=== PATIENT | male | born 1985 | race Caucasian/White ===

== ENCOUNTER 2016-06-07 19:47 | Emergency (ER) | payer OTHER ==
[2016-06-07 20:10] VITALS: BP 108/65; PULSE 64; RESP 18; TEMP 98.5; O2SAT 98
[2016-06-07 20:11] VITALS: BMI 24.3
--- NOTE | 2016-06-07 20:42 | C.PDOC ---
History Of Present Illness 31 year old male presents to the ED with complaints of injuring his left 4th finger today at work. Patient states he was removing tires from rims when the machine hit his finger around noon today. He continued working however the pain worsened and radiated up his arm which prompted his visit. He notes he is right hand dominant and denies change in sensation, any bleeding, or any other complaints at this time. Time Seen by Provider: 06/07/16 20:19 Chief Complaint (Nursing): Upper Extremity Problem/Injury History Per: Patient History/Exam Limitations: no limitations Onset/Duration Of Symptoms: Hrs Current Symptoms Are (Timing): Still Present Severity: Mild Past Medical History Reviewed: Historical Data, Nursing Documentation, Vital Signs Vital Signs: Last Vital Signs Temp 98.5 F 06/07/16 20:09 Pulse 64 06/07/16 20:09 Resp 18 06/07/16 20:09 BP 108/65 06/07/16 20:09 Pulse Ox 98 06/07/16 21:17 - Medical History PMH: No Chronic Diseases Surgical History: Appendectomy (9 yrs old) Family History: States: Unknown Family Hx - Social History Hx Tobacco Use: No Hx Alcohol Use: No Hx Substance Use: No - Immunization History Hx Tetanus Toxoid Vaccination: No Hx Influenza Vaccination: No Hx Pneumococcal Vaccination: No Review Of Systems Except As Marked, All Systems Reviewed And Found Negative. Constitutional: Negative for: Fever, Chills Musculoskeletal: Positive for: Hand Pain (+Left 4th finger pain) Neurological: Negative for: Weakness, Numbness Physical Exam - Physical Exam Appears: Non-toxic, No Acute Distress Skin: Normal Color, Warm, Dry Head: Atraumatic, Normacephalic Eye(s): bilateral: Normal Inspection Oral Mucosa: Moist Chest: Symmetrical Respiratory: No Accessory Muscle Use Extremity: No Normal ROM (decreased ROM secondary to pain), Tenderness (+ Tenderness to the distal aspect of the left 4th finger), Capillary Refill (< 2 seconds), No Deformity, Other (+Subungal hematoma ~ 30%) Pulses: Left Radial: Normal, Right Radial: Normal Neurological/Psych: Oriented x3, Normal Speech, Normal Cognition, Normal Motor, Normal Sensation ED Course And Treatment O2 Sat by Pulse Oximetry: 98 (Room air) Pulse Ox Interpretation: Normal - Other Rad Left Hand X-ray X-Ray: Interpreted by Me, Viewed By Me Interpretation: No fx or dislocation Progress Note: Left Hand X-ray ordered and reviewed. Patient treated with Tylenol and ice was applied. Finger splint was applied by the CP and patient was advised outpatient follow up in 1-3 days. Disposition - Disposition Disposition: HOME/ ROUTINE Disposition Time: 20:40 Condition: STABLE Additional Instructions: Follow up with primary medical doctor in 1-3 days without fail for further evaluation. Return to the emergency department at any time if symptoms persist or worsen. Prescriptions: Ibuprofen [Motrin] 600 mg PO Q6 PRN #20 tab PRN Reason: Pain, Mild (1-3) Instructions: Jammed Finger (ED) - Clinical Impression Clinical Impression: Finger contusion, Subungual hematoma - PA / BEAR KEEPER / Resident Statement MD/DO has reviewed & agrees with the documentation as recorded. - Scribe Statement The provider has reviewed the documentation as recorded by the Scribe Belinda Acosta. All medical record entries made by the Scribe were at my direction and personally dictated by me. I have reviewed the chart and agree that the record accurately reflects my personal performance of the history, physical exam, medical decision making, and the department course for this patient. I have also personally directed, reviewed, and agree with the discharge instructions and disposition.
--- NOTE | 2016-06-08 10:28 | RAD ---
PROCEDURE: Left 4th finger PA view of the left hand and 2 additional cone-down views of the left 4th finger performed. HISTORY: pain COMPARISON: None. FINDINGS: BONES: No evidence of acute displaced fracture nor dislocation. Osseous structures appear intact. No obvious cortical destructive changes. JOINTS: Joint spaces preserved. No evidence of significant osteoarthritis SOFT TISSUES: Soft tissues appear grossly unremarkable. OTHER FINDINGS: None. IMPRESSION: No acute fracture seen. If symptoms persist or occult fracture suspected clinically, consider repeat radiographs in 5-10 days as most fractures should become radiographically evident this timeframe.
== END 2016-06-07 20:58 | disposition home or self-care (01) ==
LOC: C.ER 19:47
DX: S60.042A Contusion of left ring finger without damage to nail, initial encounter (principal); W31.89XA Contact with other specified machinery, initial encounter; Y93.89 Activity, other specified; Y92.89 Other specified places as the place of occurrence of the external cause; Y99.0 Civilian activity done for income or pay

== ENCOUNTER 2016-12-26 20:51 | Emergency (ER) | payer OTHER ==
[2016-12-26 20:52] VITALS: BMI 24.3
--- NOTE | 2016-12-26 22:05 | C.PDOC ---
History Of Present Illness 31 year old male presents to the ED with a headache that has been occurring for approximately a month that describes as tightness to the forehead and jaw and radiating to neck and shoulders. Patient also notes he feels tired in the morning even after a good night sleep. Patient denies weakness, numbness, fever. Time Seen by Provider: 12/26/16 21:37 Chief Complaint (Nursing): Headache History Per: Patient History/Exam Limitations: no limitations Onset/Duration Of Symptoms: Intermittent Episodes Current Symptoms Are (Timing): Still Present Quality: Tightness (forehead and jaw) Preceeding Symptoms: None Associated Symptoms: denies: Nausea, Vomiting, Extremity Weakness Recent travel outside of the [place]: No Past Medical History Reviewed: Historical Data, Nursing Documentation, Vital Signs Vital Signs: Last Vital Signs Temp 97.7 F 12/26/16 22:30 Pulse 82 12/26/16 22:30 Resp 16 12/26/16 22:30 BP 135/78 12/26/16 22:30 Pulse Ox 100 12/27/16 02:07 - Medical History PMH: No Chronic Diseases Denies: Chronic Kidney Disease Surgical History: Appendectomy (9 yrs old) Family History: States: Unknown Family Hx - Social History Hx Tobacco Use: No Hx Alcohol Use: Yes Hx Substance Use: No - Immunization History Hx Tetanus Toxoid Vaccination: No Hx Influenza Vaccination: No Hx Pneumococcal Vaccination: No Review Of Systems Constitutional: Negative for: Fever, Chills, Weakness Eyes: Negative for: Vision Change Gastrointestinal: Negative for: Vomiting Neurological: Positive for: Headache. Negative for: Weakness, Numbness, Change in Speech, Dizziness Physical Exam - Physical Exam Appears: Non-toxic, No Acute Distress Skin: Normal Color, Warm, Dry Head: Atraumatic, Normacephalic Eye(s): bilateral: Normal Inspection, PERRL, EOMI Ear(s): Bilateral: Normal Throat: Normal, No Erythema Neck: Normal, Paracervical Tenderness (Left greater than right), Supple, No Other (meningeal signs) Chest: Symmetrical Cardiovascular: Rhythm Regular Respiratory: Normal Breath Sounds, No Rhonchi, No Wheezing Extremity: Normal ROM Extremity: Bilateral: Atraumatic, Normal ROM Neurological/Psych: Oriented x3, Normal Speech, Normal Cognition, Normal Motor, Normal Sensation Gait: Steady ED Course And Treatment O2 Sat by Pulse Oximetry: 100 (Room air) Pulse Ox Interpretation: Normal Progress Note: Patient is resting comfortably and is not having headache at this time, there is no neurologic deficit, photophobia, rash, fever, or nuchal rigidity. Patient refused head CT and is requesting blood test. Patient instructed to follow up with PMD for futher evaluation. Advised taking analgesics for his headache if it reccurs. Return precautions d/w pt who expressed understanding Disposition Counseled Patient/Family Regarding: Diagnosis, Need For Followup - Disposition Disposition: HOME/ ROUTINE Disposition Time: 22:01 Condition: STABLE Additional Instructions: Please follow up with your PMD on wednesday Take meds as directed Return to ER if worse Prescriptions: Ibuprofen [Motrin] 600 mg PO Q6H #20 tab Instructions: Tension Headache (ED) Forms: [employer] (Cameroonian) - Clinical Impression Clinical Impression: Headache, Feeling tired - Scribe Statement The provider has reviewed the documentation as recorded by the Scribe Stevie Arreaga All medical record entries made by the Scribe were at my direction and personally dictated by me. I have reviewed the chart and agree that the record accurately reflects my personal performance of the history, physical exam, medical decision making, and the department course for this patient. I have also personally directed, reviewed, and agree with the discharge instructions and disposition.
[2016-12-26 22:31] VITALS: BP 135/78; PULSE 82; RESP 16; TEMP 97.7
[2016-12-27 01:56] VITALS: O2SAT 100
== END 2016-12-26 22:30 | disposition home or self-care (01) ==
LOC: C.ER 20:51
DX: R51 Headache (principal); R53.83 Other fatigue

== ENCOUNTER 2017-04-19 19:53 | Emergency (ER) | payer SELFPAY ==
[2017-04-19 19:53] VITALS: BMI 24.3
[2017-04-19 20:44] VITALS: BP 118/80; PULSE 58; RESP 22; TEMP 98.1; O2SAT 100
--- NOTE | 2017-04-19 21:17 | C.PDOC ---
History Of Present Illness 32 year old male presents to the ER with a complaint of a penile rash that began 5 days ago. Patient reports one occurrence 3 weeks ago when a condom broke during sexual intercourse and is unsure if it may be related to that. Denies penile discharge or penile pain. Time Seen by Provider: 04/19/17 20:44 Chief Complaint (Nursing): Male Genitourinary History Per: Patient History/Exam Limitations: no limitations Onset/Duration Of Symptoms: Days Current Symptoms Are (Timing): Still Present Associated Symptoms: denies: Fever, Chills Recent travel outside of the [place]: No Past Medical History Reviewed: Historical Data, Nursing Documentation, Vital Signs Vital Signs: Last Vital Signs Temp 98.1 F 04/19/17 20:40 Pulse 58 L 04/19/17 20:40 Resp 22 04/19/17 20:40 BP 118/80 04/19/17 20:40 Pulse Ox 100 04/19/17 21:20 Surgical History: Appendectomy (9 yrs old) Family History: States: Unknown Family Hx - Social History Hx Tobacco Use: No Hx Alcohol Use: Yes Hx Substance Use: No - Immunization History Hx Tetanus Toxoid Vaccination: No Hx Influenza Vaccination: No Hx Pneumococcal Vaccination: No Review Of Systems Constitutional: Negative for: Fever, Chills Genitourinary: Positive for: Rash. Negative for: Penile Discharge, Scrotal Pain , Penile Pain Physical Exam - Physical Exam Appears: Non-toxic, No Acute Distress Skin: Warm, Dry Head: Atraumatic, Normacephalic Eye(s): bilateral: Normal Inspection Oral Mucosa: Moist Male Genital: Other (Erythematous lesions with scattered vesicles around the glans. No tenderness, discharge, lesions, or scrotal tenderness.) Neurological/Psych: Oriented x3, Normal Speech ED Course And Treatment O2 Sat by Pulse Oximetry: 100 (Room air) Pulse Ox Interpretation: Normal Progress Note: Patient is stable in the ER in no distress, advised to follow up with PMD for further testing. 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 - Scribe Statement The provider has reviewed the documentation as recorded by the Scribe Chris Butler All medical record entries made by the Scribe were at my direction and personally dictated by me. I have reviewed the chart and agree that the record accurately reflects my personal performance of the history, physical exam, medical decision making, and the department course for this patient. I have also personally directed, reviewed, and agree with the discharge instructions and disposition.
== END 2017-04-19 21:38 | disposition home or self-care (01) ==
LOC: C.ER 19:53
DX: A60.00 Herpesviral infection of urogenital system, unspecified (principal)

== ENCOUNTER 2017-05-06 20:55 | Emergency (ER) | payer SELFPAY ==
[2017-05-06 20:55] VITALS: BMI 24.3
[2017-05-06 21:39] VITALS: BP 102/65; PULSE 67; RESP 20; TEMP 98.3; O2SAT 99
--- NOTE | 2017-05-06 22:35 | C.PDOC ---
History Of Present Illness 32 yo male c/o cough since this morning. Notes when he coughs, his head hurts. Denies fever, SOB, chest pain, neck pain, abdominal pain, or N/v. Has not tried any medications for the symptoms, requesting cough medication. Time Seen by Provider: 05/06/17 22:12 Chief Complaint (Nursing): Cough, Cold, Congestion History Per: Patient History/Exam Limitations: no limitations Onset/Duration Of Symptoms: Hrs Current Symptoms Are (Timing): Still Present Past Medical History Vital Signs: Last Vital Signs Temp 98.3 F 05/06/17 21:35 Pulse 67 05/06/17 21:35 Resp 20 05/06/17 23:00 BP 102/65 05/06/17 21:35 Pulse Ox 99 05/06/17 22:35 - Medical History PMH: Denies: Chronic Kidney Disease Surgical History: Appendectomy (9 yrs old) Family History: States: Unknown Family Hx - Social History Hx Tobacco Use: No Hx Alcohol Use: No Hx Substance Use: No - Immunization History Hx Tetanus Toxoid Vaccination: No Hx Influenza Vaccination: No Hx Pneumococcal Vaccination: No Review Of Systems Except As Marked, All Systems Reviewed And Found Negative. Respiratory: Positive for: Cough Physical Exam - Physical Exam Appears: Well, Non-toxic, No Acute Distress Skin: Normal Color, Warm, Dry Head: Atraumatic, Normacephalic Eye(s): bilateral: Normal Inspection, PERRL, EOMI Ear(s): Bilateral: Normal Nose: Normal Oral Mucosa: Moist Throat: Normal, No Erythema, No Exudate Neck: Normal, Normal ROM, Supple Chest: Symmetrical Cardiovascular: Rhythm Regular Respiratory: Normal Breath Sounds Gastrointestinal/Abdominal: Normal Exam, Soft, No Tenderness Back: Normal Inspection Extremity: Normal ROM Neurological/Psych: Oriented x3, Normal Speech, Normal Cognition, Normal Cranial Nerves (2-12, no focal deficits) ED Course And Treatment O2 Sat by Pulse Oximetry: 99 Progress Note: No coughing noted throughout exam. Pt denies headache currently. Afebrile. Tolerating PO. No sob. Instructed symptomatic treatment and follow up with PMD in 1-2 days. Disposition - Disposition Disposition: HOME/ ROUTINE Disposition Time: 22:34 Condition: STABLE Additional Instructions: Follow up with your primary medical doctor or clinic in 2-5 days for further evaluation. Take medications as prescribed. Return to the emergency department at any time if symptoms persist or worsen. Prescriptions: Benzonatate [Tessalon Perle] 100 mg PO TID PRN #15 capsule PRN Reason: Cough Instructions: Upper Respiratory Infection (ED) Forms: [employer] (Nigerien) - Clinical Impression Clinical Impression: Upper respiratory infection
== END 2017-05-06 23:00 | disposition home or self-care (01) ==
LOC: C.ER 20:55
DX: J06.9 Acute upper respiratory infection, unspecified (principal)

== ENCOUNTER 2018-07-08 21:33 | Emergency (ER) | payer BC ==
[2018-07-08 21:33] VITALS: BMI 24.3
[2018-07-08 21:49] VITALS: O2SAT 99
[2018-07-08] MEDS ORDERED: DiphenhydrAMINE 50 mg/ml Inj IVP STA (21:58)
[2018-07-08] MEDS ORDERED: Sodium Chloride 0.9% 1,000 ML IV STA (21:58)
--- NOTE | 2018-07-08 22:04 | C.PDOC ---
History Of Present Illness 33 y/o M c no PMHx p/w headache, dizziness, and general weakness x 2 days. Patient states he has frontal headache, constant. Also reports seconds long transient episodes of dizziness that he describes as spinning and is not present currently. He denies fever, chills, nausea, vomiting, photophobia, stiff neck, numbness, motor weakness. <[facility] - Last Filed: 07/08/18 22:02> <[facility] - Last Filed: 07/08/18 22:02> <Keenan Talbert E - Last Filed: 07/09/18 00:32> Time Seen by Provider: 07/08/18 21:50 Chief Complaint (Nursing): Dizziness/Lightheaded Past Medical History Vital Signs: Last Vital Signs Temp 98.7 F 07/08/18 21:39 Pulse 61 07/08/18 21:39 Resp 07/08/18 21:39 BP 121/77 07/08/18 21:39 Pulse Ox 99 07/08/18 21:39 - Medical History PMH: Denies: Chronic Kidney Disease Surgical History: Appendectomy (9 yrs old) Family History: States: Unknown Family Hx - Social History Hx Tobacco Use: No Hx Alcohol Use: No Hx Substance Use: No - Immunization History Hx Tetanus Toxoid Vaccination: No Hx Influenza Vaccination: No Hx Pneumococcal Vaccination: No <Karl Coleman - Last Filed: 07/08/18 22:02> Vital Signs: Last Vital Signs Temp 98.7 F 07/08/18 21:39 Pulse 61 07/08/18 21:39 Resp 07/08/18 21:39 BP 121/77 07/08/18 21:39 Pulse Ox 99 07/08/18 22:04 <Keenan Talbert E - Last Filed: 07/09/18 00:32> Review Of Systems Except As Marked, All Systems Reviewed And Found Negative. Constitutional: Negative for: Fever Cardiovascular: Negative for: Chest Pain <JaredKarl Lr - Last Filed: 07/08/18 22:02> Physical Exam - Physical Exam Additional Physical Exam Comments: gen nad head nc/at eyes perrl, no nystagmus ent mmm neck no rigidity chest no tenderness cv reg rate lungs cta b/l abd soft nt back no cva tenderness extremities no swelling or tenderness skin no rash neuro alert, no focal deficit <JaredKarl Be - Last Filed: 07/08/18 22:02> ED Course And Treatment O2 Sat by Pulse Oximetry: 99 <Karl Coleman - Last Filed: 07/08/18 22:02> - Laboratory Results Result Diagrams: 07/08/18 22:11 07/08/18 22:11 Lab Results: Total Bilirubin 1.4 mg/dL (0.2-1.3) H 07/08/18 22:11 AST 47 U/L (17-59) 07/08/18 22:11 ALT 35 U/L (21-72) 07/08/18 22:11 Alkaline Phosphatase 53 U/L (38-126) 07/08/18 22:11 Total Protein 5.9 g/dL (6.3-8.3) L 07/08/18 22:11 Albumin 3.6 g/dL (3.5-5.0) 07/08/18 22:11 Globulin 2.3 gm/dL (2.2-3.9) 07/08/18 22:11 Albumin/Globulin Ratio 1.5 (1.0-2.1) 07/08/18 22:11 Urine Color Yellow (YELLOW) 07/08/18 23:32 Urine Clarity Clear (Clear) 07/08/18 23:32 Urine pH 5.0 (5.0-8.0) 07/08/18 23:32 Ur Specific [place] 1.017 (1.003-1.030) 07/08/18 23:32 Urine Protein Negative mg/dL (NEGATIVE) 07/08/18 23:32 Urine Glucose (UA) Normal mg/dL (Normal) 07/08/18 23:32 Urine Ketones Negative mg/dL (NEGATIVE) 07/08/18 23:32 Urine Blood Negative (NEGATIVE) 07/08/18 23:32 Urine Nitrate Negative (NEGATIVE) 07/08/18 23:32 Urine Bilirubin Negative (NEGATIVE) 07/08/18 23:32 Urine Urobilinogen 2.0 mg/dL (0.2-1.0) 07/08/18 23:32 Ur Leukocyte Esterase Neg Rj/uL (Negative) 07/08/18 23:32 Urine WBC (Auto) 2 /hpf (0-5) 04/19/19 23:32 Urine RBC (Auto) 1 /hpf (0-3) 07/08/18 23:32 Ur Squamous Epith Cells < 1 /hpf (0-5) 07/08/18 23:32 <Keenan Talbert - Last Filed: 07/09/18 00:32> Medical Decision Making Medical Decision Making: signed over @ 12MN, pending CT head for DUGGAN pain empiric treatment given by Dr. Coleman pt seen and examined ++ nasal passage inflammation without d/c pt describes DUGGAN pain as frontal/behind eyes and positional probably c/w sinus DUGGAN nasal decongestant therapy reviewed CT head neg. <Keenan Talbert - Last Filed: 07/09/18 00:32> Disposition <Karl Coleman - Last Filed: 07/08/18 22:02> Doctor Will See Patient In The: Office Counseled Patient/Family Regarding: Studies Performed, Diagnosis - Disposition Disposition Time: 00:32 <Keenan Talbert - Last Filed: 07/09/18 00:32> - Disposition Disposition: HOME/ ROUTINE Condition: GOOD Forms: [facility] (Vietnamese) - Clinical Impression Clinical Impression: Headache
[2018-07-08 22:15] LABS: BASO % 1.3 % (0.0-2.0); EOS # 0.2 K/uL (0.0-0.7); EOS % 4.9 % (0.0-4.0); HEMOGLOBIN 13.7 g/dL (12.0-18.0); LYMPH # 1.1 K/uL (1.0-4.3); MEAN CORPUSCULAR HEMOGLOBIN 27.6 pg (27.0-31.0); MEAN CORPUSCULAR HGB CONC 33.2 g/dL (33.0-37.0); MEAN PLATELET VOLUME 8.7 fL (7.2-11.7); MONO # 0.5 K/uL (0.0-0.8); MONO % 13.2 % (0.0-10.0); NEUT # 1.6 K/uL (1.8-7.0); NEUT % 47.6 % (50.0-75.0); NRBC % 0.1 % (0.0-2.0); RBC 4.95 Mil/uL (4.40-5.90); RED CELL DISTRIBUTION WIDTH 12.9 % (11.5-14.5)
[2018-07-08 22:17] LABS: MEAN CELL VOLUME 83.1 fL (80.0-94.0); WHITE BLOOD COUNT 3.5 K/uL (4.8-10.8)
[2018-07-08 22:26] LABS: ALB/GLOB RATIO 1.5 (1.0-2.1); ALBUMIN 3.6 g/dL (3.5-5.0); ALT/SGPT 35 U/L (21-72); AST/SGOT 47 U/L (17-59); BLOOD UREA NITROGEN 13 mg/dL (9-20); CALCIUM 8.7 mg/dl (8.6-10.4); GFR NON-AFRICAN AMERICAN > 60
[2018-07-08] MEDS ORDERED: DiphenhydrAMINE 50 mg/ml Inj ONE (22:27)
[2018-07-08 23:39] LABS: SQUAMOUS EPITHIAL < 1 /hpf (0-5); URINE BILIRUBIN NEGATIVE (NEGATIVE); URINE BLOOD NEGATIVE (NEGATIVE); URINE CLARITY Clear (Clear); URINE COLOR Yellow (YELLOW); URINE GLUCOSE (UA) NORMAL (Normal); URINE LEUKOCYTE ESTERASE NEG Leu/uL (Negative); URINE PROTEIN NEGATIVE (NEGATIVE)
[2018-07-09 01:33] VITALS: BP 100/60; PULSE 56; RESP 16; TEMP 99
--- NOTE | 2018-07-09 08:10 | CT ---
Date of service: 07/08/2018 PROCEDURE: CT HEAD WITHOUT CONTRAST. HISTORY: Headache COMPARISON: 04/02/2015. TECHNIQUE: Axial computed tomography images were obtained through the head/brain without intravenous contrast. Radiation dose: Total exam DLP = 1108.59 mGy-cm. This CT exam was performed using one or more of the following dose reduction techniques: Automated exposure control, adjustment of the mA and/or kV according to patient size, and/or use of iterative reconstruction technique. FINDINGS: HEMORRHAGE: No intracranial hemorrhage. BRAIN: Trejo-white matter differentiation is preserved. There is no mass, mass effect or abnormal extra-axial fluid collection. There is no territorial infarction. The midline sagittal structures are normal. VENTRICLES: There is mild age-related global parenchymal volume loss and proportionate enlargement of the ventricles and cortical sulci. CALVARIUM: There is no calvarial fracture or extracranial soft tissue swelling. PARANASAL SINUSES: Predominantly clear. MASTOID AIR CELLS: Predominantly clear. OTHER FINDINGS: None. IMPRESSION: No acute intracranial abnormality. If there is a persistent focal neurologic deficit and an ongoing clinical concern for acute infarction, an MRI of the brain without intravenous contrast would be a more sensitive modality for evaluation of hyperacute/acute ischemic infarction. A preliminary report was provided by [facility].
== END 2018-07-09 01:35 | disposition home or self-care (01) ==
LOC: C.ER 21:33
DX: R51 Headache (principal)
CPT/HCPCS: 70450; 80053; 81001; 85025; 96361; 96374; 96375; 99285; J1200; J1885; J2765; J7030